=== PATIENT | male | born 1955 | race Caucasian/White ===

== ENCOUNTER 2021-04-07 11:12 | Emergency (ER) | payer MEDICARE, MEDICAID ==
[~2021-04-07] VITALS: Ht 172.7 cm; Wt 91.0 kg
[2021-04-07] MEDS ORDERED: BACITRACIN ZINC OINT UDPKT TOP ONE (11:30)
[2021-04-07] MEDS ORDERED: MORPHINE SULFATE 10 MG/ML CPJ IM ONE (11:30)
[2021-04-07] MEDS ORDERED: TETANUS, DIPHTHERIA, PERTUSSIS VAC/PF 0.5ML (>7YR OLD) IM ONE (11:30)
[2021-04-07] MEDS ORDERED: LIDOCAINE HCL/EPINEPHRINE 1%-EPI 1:100,000 20 ML VIAL INFIL ONE (11:30)
[2021-04-07] MEDS ORDERED: AMPICILLIN SOD/SULBACTAM NA 1.5 G in SODIUM CHLORIDE 0.9% 50 ML IV STA (16:46)
[2021-04-07 18:16] LABS: HEMATOCRIT. 45.3 % (42.0-52.0); HEMOGLOBIN. 15.1 g/dL (14.0-18.0); MEAN CORPUSCULAR HEMOGLOBIN 30.1 pg (28.0-32.0); MEAN CORPUSCULAR VOLUME 90.2 fL (80.0-94.0); MEAN PLATELET VOLUME 7.2 fl (7.4-10.4); PLATELET 272 x1000/uL (130-400); RED BLOOD CELL COUNT 5.03 mill/uL (4.7-6.1); RED CELL DISTRIBUTION WIDTH 14.7 % (11.6-14.6)
[2021-04-07 18:22] LABS: CHLORIDE 109 mEq/L (98-107)
[2021-04-07 18:24] LABS: PROTHROMBIN TIME 10.6 sec (9.6-11.0)
[2021-04-07 18:41] LABS: PLATELET ESTIMATE NORMAL
[2021-04-07 22:55] VITALS: BP 144/69
== END 2021-04-07 23:30 | disposition short-term general hospital (02) ==
LOC: ER 11:27
DX: S51.011A Laceration without foreign body of right elbow, initial encounter (principal); R51.9 Headache, unspecified; I49.9 Cardiac arrhythmia, unspecified; Y04.8XXA Assault by other bodily force, initial encounter; Y93.89 Activity, other specified; Y92.89 Other specified places as the place of occurrence of the external cause; Y99.8 Other external cause status
CPT/HCPCS: 12011; 36415; 70110; 70150; 70450; 70486; 73080; 80053; 85025; 85610; 90471; 90715; 93005; 96365; 96372; 99285; J0295; J2270; J3490